=== PATIENT | female | born 1965 | race American Indian/Alaskan Native ===

== ENCOUNTER 2025-07-17 08:32 | Day surgery (SDC) | payer MEDICARE, OTHER ==
[~2025-07-17] VITALS: Ht 162.6 cm; Wt 81.8 kg
[~2025-07-17 08:32] MED LIST: ACETAMINOP160 MG/52 GT; ASPIRIN EC81 MG PO; ATORVASTATIN CA40 MG PO; AUGMENTIN 875-1 EACH GT; CITALOPRAM HBR20 MG PO; CLONAZEPAM0.5 MG PO; CRESTOR10 MG PO; FENOFIBRATE160 MG PO; FERROUS GLUCON324 M1 PO; FLUTICASONE PRO16 GM NAS; FLUTICASONE PRO16 GM NS; GLIPIZIDE5 MG PO; HUMULIN N100 UNIT/1 SUB-Q; HUMULIN N100 UNIT/3 SUB-Q; HUMULIN R100 UNIT/1; IBLOOD GLUCOSE TEST STRIP 1 EA TEST VI PRN; IBUPROFEN600 MG PO; IBUPROFEN800 MG PO; INVOKANA100 MG PO; JANUMET 50-1,01 EACH PO; KLOR-CON M2020 MEQ GT; LACTATED RINGER'S 1,000 ML IV SCH; LANTUS SOL100 UNIT/1 SUB-Q; LANTUS100 UNIT/1 SUB-Q; LIDOCAINE HCL 1% 5 ML SDV INJ ONE; LIDODERM1 EACH TOP; LIPITOR20 MG PO; LISINOPRIL10 MG PO; LORATADINE10 MG PO; LOSARTAN POTAS100 MG PO; LOW DOSE ASPIRI81 MG PO; METFORMIN HCL500 M1 PO; METFORMIN HCL500 MG GT; METFORMIN HCL500 MG PO; MIDAZOLAM HCL 5 MG/5 ML VIAL IV PRN; OMEGA 3 1,0001 EACH PO; OMEPRAZOLE20 MG PO; ONDANSETRON HCL4 MG GT; ONDANSETRON ODT4 MG SL; OZEMPIC1 MG/0.71 SUB-Q; PERCOCET 5-3251 EACH PO; REGLAN10 MG PO; SPIRONOLACTONE25 MG PO; SULFAMETHOXAZO1 EAC1 GT; SULFAMETHOXAZO1 EAC1 PO; VITAMIN B-121000 MCG PO; VITAMIN C500 M1 PO; VITAMIN D350 MC3 PO; VITAMIN D350000 UNIT PO; ZOFRAN ODT4 MG SL; fentaNYL citrate 100 MCG/2 ML VIAL IV PRN
[2025-07-17 08:50] VITALS: BP 162/75
[2025-07-17] MEDS ORDERED: fentaNYL citrate 100 MCG/2 ML VIAL ONE (10:18)
[2025-07-17] MEDS ORDERED: MIDAZOLAM HCL 5 MG/5 ML VIAL ONE (10:18)
--- NOTE | 2025-07-17 10:23 | NUR ---
denies any needs. visiting with sister. iv patent.
[2025-07-17 12:24] VITALS: BP 134/70
--- NOTE | 2025-07-17 12:31 | NUR ---
07/17/25 1231 Kylie Ham 1121 PT ARRIVED TO PACU ON 2L VIA NC, VSS. PT WAKES EASILY AND DENIES CONCERNS. 1131 MD AT BEDSIDE TALKING TO PT. PLAN OF CARE DISCUSSED. 1133 O2 REMOVED AND HOB INCREASED. PT SIPPING WATER. 1155 PT DRESSED HERSELF AND DC INSTRUCTIONS GIVEN. PAPERWORK GIVEN. VSS. PT DC VIA WC.
--- NOTE | 2025-07-18 11:20 | OR ---
[facility] [address] [place], [place] [address] Signed DATE OF OPERATION: 07/17/2025 SURGEON: Vickie Schwartz MD PREOPERATIVE DIAGNOSIS: Surveillance colonoscopy. POSTOPERATIVE DIAGNOSIS: Normal colon to cecum. PROCEDURE: Total colonoscopy to cecum. ANESTHESIA: Intravenous sedation; fentanyl 100 mcg and Versed 4 mg. INDICATION: This 60-year-old [place] woman is a patient of CHERYL Rodas at [facility]. She underwent colonoscopy [address] Efrain Krause at [facility] and there were no findings of note. She is here for a screening colonoscopy for surveillance. 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 She has no symptoms related to the colon currently, specifically no bleeding, diarrhea, or constipation. She understands the risk of bleeding, infection, and perforation related to colonoscopy and wished to proceed. FINDINGS: The prep was adequate with irrigation and was much better. Complete colonoscopy was undertaken of the cecum. There is no evidence of polyps, diverticular formation, colitis, or cancer. DESCRIPTION OF PROCEDURE: The patient was brought to the endoscopy suite and placed in the lateral decubitus position, given intravenous sedation to the point of slurred speech and nystagmus. Full cardiopulmonary monitoring was maintained. Digital rectal examination was normal. An Olympus video colonoscope was passed in the rectum and manipulated throughout the colon ultimately intubating the cecum itself. The ileocecal valve and appendiceal orifice were normal. Scope was withdrawn and examination throughout showed no sign of abnormality, specifically no polyps, diverticular formation, colitis, or cancer. Retroflexed view was normal. Scope was removed and the patient was taken to the Electronically Signed By: VICKIE SCHWARTZ MD 07/18/25 1120 PATIENT NAME: AMY ONTIVEROS OPERATIVE REPORT DATE OF : 61 REPORT #: [id number] PHYSICIAN: VICKIE SCHWARTZ MD PCP: WILLIAMS MAY MD REPORT IS CONFIDENTIAL AND NOT TO BE RELEASED WITHOUT AUTHORIZATION [facility] [address] [place], [place] [address] Signed recovery room in good condition. CONCLUDING DIAGNOSIS: Normal colon to cecum. PLAN: Recommend repeat colonoscopy in 10 years, sooner if symptoms should develop. She will return to the ongoing care of CHERYL Rodas. MD GAVI Fowler/MODL /[id number] cc: Erica Zapata Copies: ERICA ZAPATA PAC ~ Electronically Signed By: VICKIE SCHWARTZ MD 07/18/25 1120 PATIENT NAME: AMY ONTIVEROS OPERATIVE REPORT DATE OF : 61 REPORT #: [id number] PHYSICIAN: VICKIE SCHWARTZ MD PCP: WILLIAMS MAY MD REPORT IS CONFIDENTIAL AND NOT TO BE RELEASED WITHOUT AUTHORIZATION
== END 2025-07-17 11:55 | disposition home or self-care (01) ==
LOC: DS 08:32 → OPS 08:32 → DS 14:00 → OPS 14:00
PROVIDERS: ATTEND Surgery
PROC: 0DJD8ZZ Inspection of Lower Intestinal Tract, Via Natural or Artificial Opening Endoscopic (ICD-10-PCS; principal; 2025-07-17 09:55)
DX: Z12.11 Encounter for screening for malignant neoplasm of colon (principal); I10 Essential (primary) hypertension; E78.5 Hyperlipidemia, unspecified; E11.9 Type 2 diabetes mellitus without complications; E03.9 Hypothyroidism, unspecified; Z79.84 Long term (current) use of oral hypoglycemic drugs; Z79.899 Other long term (current) drug therapy
CPT/HCPCS: 99153; G0500; J2250; J3010; J7121